=== PATIENT | female | born 1955 | race Caucasian/White ===

== ENCOUNTER 2019-01-19 17:11 | Emergency (ER) | payer OTHER ==
[2019-01-19] MEDS ORDERED: HEPARIN SODIUM 5000 U/ML SOL IV ONE (17:53)
[2019-01-19] MEDS ORDERED: HEPARIN SODIUM 5000 U/ML 25,000 U in DEXTROSE 250 ML 250 ML IV PRN (17:54)
[2019-01-19] MEDS ORDERED: HEPARIN SODIUM 5000 U/ML SOL ONE (18:13)
[2019-01-19 19:03] VITALS: TEMP 97.8
[2019-01-19 19:04] VITALS: O2SAT 95
[2019-01-19 19:05] VITALS: BP 107/72; PULSE 89; RESP 21
== END 2019-01-19 19:00 | disposition short-term general hospital (02) | DRG 176 ==
LOC: ED 17:11
DX: I26.09 Other pulmonary embolism with acute cor pulmonale (principal); R06.02 Shortness of breath
CPT/HCPCS: 36415; 71275; 83880; 84484; 85379; 93005; 96374; 99284; 99285; J1644; Q9967